=== PATIENT | female | born 1930 | race Caucasian/White ===

== ENCOUNTER 2018-08-20 18:57 | Inpatient (IN) | payer MEDICARE ==
[~2018-08-20] VITALS: Ht 152.4 cm; Wt 71.0 kg
--- NOTE | ~2018-08-20 | MORECARE ---
CASE MANAGEMENT DISCHARGE SUMMARY PATIENT: BOBBY MANDUJANO UNIT: [id number] ADM DATE: 08/22/18 AGE: 87 : [birth year] SEX: F ROOM/BED: D.2121 AUTHOR: ABBY,DOC PHYSICIAN: REFERRING PHYSICIAN: AIMEE DAVALOS MD DATE OF SERVICE: 08/23/18 Discharge Plan Patient Name: BOBBY MANDUJANO Facility: [facility]:[place] : 1930 Planned Disposition: Home Anticipated Discharge Date: 08/25/18 Discharge Date: Expected LOS: 3 Initial Reviewer: [id number] Initial Review Date: 08/23/2018 Generated: 08/23/18 5:57 pm Comments DCP- Discharge Planning Updated by [id number]: Jonathan Spann on 08/23/18 3:[address] Patient Name: BOBBY MANDUJANO Admission Status: ER Accout number: [id number] Admission Date: 08-22-2018 : 1930 Admission Diagnosis: Attending: AIMEE DAVALOS Current LOS: 1 Anticipated DC Date: 08-25-2018 Planned Disposition: Home Primary Insurance: MEDICARE A & B Discharge Planning Comments: CM MET WITH PT IN ROOM TO DISCUSS DISCHARGE PLANNING AND NEEDS. PT REPORTS LIVING AT HOME INDEPENDENTLY AND ALONE, PT'S HOME IS JUST [address] FROM HER DAUGHTERS HOME WHO CHECKS ON PT DAILY. PT HAS CANE AND WALKER WITH WHEELS SEAT AND BRAKES WITH NO MEDICAL EQUIPMENT PROVIDER PREFERENCE. PT HAS NO OUTSIDE SERVICES ASSISTING IN THE HOME. CM DISCUSSED AVAILABILITY OF HOME HEALTH, REHAB SERVICES AND MEDICAL EQUIPMENT. PT DENIES DISCHARGE NEEDS, REPORTS HER SON IN LAW AND DAUGHTER WILL PICK HER UP FOR DISCHARGE HOME. IMPORTANT MESSAGE FROM MEDICARE PROVIDED AND EXPLAINED. PT PLANS TO DISCHARGE HOME ALONE, FAMILY TO PICK HER UP AT DISCHARGE. PT HAS NO ANTICIPATED DISCHARGE NEEDS. CM TO FOLLOW AND ASSIST NEEDED. Log Driver: Jonathan Spann DCPIA - Discharge Planning Initial Assessment Updated by [id number]: Jonathan Spann on 08/23/18 4:45 pm * Is the patient Alert and Oriented? Yes * How many steps to enter\exit or inside your home? * PCP POLICY SERVICE COORDINATOR [facility]IS AT THE [facility] * [facility] [place] * Preadmission Environment Home Alone * ADLs Independent * Equipment Cane Rolling Walker * Other Equipment NO MEDICAL EQUIPMENT PROVIDER PREFERENCE * List name and contact numbers for known caregivers / representatives who currently or will assist patient after discharge: RUBINA MIKO, DTR, NEFTALY CROUCH, SON IN LAW, * Verbal permission to speak to the caregivers and representatives has been obtained from the patient. Yes * Community resources currently utilized None * Please name any agencies selected above. NONE * Additional services required to return to the preadmission environment? No * Can the patient safely return to the preadmission environment? Yes * Has this patient been hospitalized within the prior 30 days at any hospital? No Coverage Notice Reviewer: [id number] Evans Cano Notice Issued Date-Time: 08/21/2018 16:54 Notice Type: Medicare Outpatient Observation Notice Notice Delivered To: Patient Relationship to Patient: Self Cathead Worker Name: Delivery Method: HAND - Hand Delivered Madeline Days: Prior Verbal Notification: Recipient Understood Notice: Yes Recipient Signature: Yes Med Rec Note Co-signed by Attending: Coverage Notice Comment: Reviewer: [id number] - Jonathan Spann Notice Issued Date-Time: 08/23/2018 13:45 Notice Type: IM Discharge Notice Notice Delivered To: Patient Relationship to Patient: Cathead Worker Name: Delivery Method: HAND - Hand Delivered Madeline Days: Prior Verbal Notification: Recipient Understood Notice: Yes Recipient Signature: Yes Med Rec Note Co-signed by Attending: Coverage Notice Comment: Last DP export: 08/23/18 3:46 Patient Name: BOBBY MANDUJANO Page [id number] at 1657 All edits/amendments must be made on the electronic document DICTATION DATE: 08/23/181655 APICULTURIST: RADHA 08/23/181655 RPT#: [id number] DC DATE: STATUS: ADM IN [facility] [address] [place] [address] END OF REPORT
--- NOTE | ~2018-08-20 | MORECARE ---
CASE MANAGEMENT DISCHARGE SUMMARY PATIENT: BOBBY MANDUJANO UNIT: [id number] ADM DATE: 08/22/18 AGE: 87 : [birth year] SEX: F ROOM/BED: D.2121 AUTHOR: ABBY,DOC PHYSICIAN: REFERRING PHYSICIAN: AIMEE DAVALOS MD DATE OF SERVICE: 08/26/18 Discharge Plan Patient Name: BOBBY MANDUJANO Facility: [facility]:[place] : 1930 Planned Disposition: Home Anticipated Discharge Date: 08/26/18 Discharge Date: Expected LOS: 4 Initial Reviewer: [email or web address] Initial Review Date: 08/23/2018 Generated: 08/26/18 2:01 pm Comments DCP- Discharge Planning Updated by [id number]: Jonathan Spann on 08/23/18 3:[address] Patient Name: BOBBY MANDUJANO Admission Status: ER Accout number: [id number] Admission Date: 08-22-2018 : 1930 Admission Diagnosis: Attending: AIMEE DAVALOS Current LOS: 1 Anticipated DC Date: 08-25-2018 Planned Disposition: Home Primary Insurance: MEDICARE A & B Discharge Planning Comments: CM MET WITH PT IN ROOM TO DISCUSS DISCHARGE PLANNING AND NEEDS. PT REPORTS LIVING AT HOME INDEPENDENTLY AND ALONE, PT'S HOME IS JUST [address] FROM HER DAUGHTERS HOME WHO CHECKS ON PT DAILY. PT HAS CANE AND WALKER WITH WHEELS SEAT AND BRAKES WITH NO MEDICAL EQUIPMENT PROVIDER PREFERENCE. PT HAS NO OUTSIDE SERVICES ASSISTING IN THE HOME. CM DISCUSSED AVAILABILITY OF HOME HEALTH, REHAB SERVICES AND MEDICAL EQUIPMENT. PT DENIES DISCHARGE NEEDS, REPORTS HER SON IN LAW AND DAUGHTER WILL PICK HER UP FOR DISCHARGE HOME. IMPORTANT MESSAGE FROM MEDICARE PROVIDED AND EXPLAINED. PT PLANS TO DISCHARGE HOME ALONE, FAMILY TO PICK HER UP AT DISCHARGE. PT HAS NO ANTICIPATED DISCHARGE NEEDS. CM TO FOLLOW AND ASSIST NEEDED. Wire Spring Relay Adjuster: Jonathan Spann DCPIA - Discharge Planning Initial Assessment Updated by [id number]: Jonathan Spann on 08/23/18 4:45 pm * Is the patient Alert and Oriented? Yes * How many steps to enter\exit or inside your home? * PCP ACO COORDINATOR [facility] AT THE [facility] * [facility] [place] * Preadmission Environment Home Alone * ADLs Independent * Equipment Cane Rolling Walker * Other Equipment NO MEDICAL EQUIPMENT PROVIDER PREFERENCE * List name and contact numbers for known caregivers / representatives who currently or will assist patient after discharge: RUBINA CROUCH, DTR, NEFTALY CROUCH, SON IN LAW, * Verbal permission to speak to the caregivers and representatives has been obtained from the patient. Yes * Community resources currently utilized None * Please name any agencies selected above. NONE * Additional services required to return to the preadmission environment? No * Can the patient safely return to the preadmission environment? Yes * Has this patient been hospitalized within the prior 30 days at any hospital? No Coverage Notice Reviewer: [id number] Evans Cano Notice Issued Date-Time: 08/21/2018 16:54 Notice Type: Medicare Outpatient Observation Notice Notice Delivered To: Patient Relationship to Patient: Self Electric Welder Name: Delivery Method: HAND - Hand Delivered Madeline Days: Prior Verbal Notification: Recipient Understood Notice: Yes Recipient Signature: Yes Med Rec Note Co-signed by Attending: Coverage Notice Comment: Reviewer: ALYSSA Spann Notice Issued Date-Time: 08/23/2018 13:45 Notice Type: IM Discharge Notice Notice Delivered To: Patient Relationship to Patient: Electric Welder Name: Delivery Method: HAND - Hand Delivered Madeline Days: Prior Verbal Notification: Recipient Understood Notice: Yes Recipient Signature: Yes Med Rec Note Co-signed by Attending: Coverage Notice Comment: Reviewer: ALYSSA Spann Notice Issued Date-Time: 08/26/2018 12:20 Notice Type: IM Discharge Notice Notice Delivered To: Patient Relationship to Patient: Electric Welder Name: Delivery Method: HAND - Hand Delivered Madeline Days: Prior Verbal Notification: Recipient Understood Notice: Yes Recipient Signature: Yes Med Rec Note Co-signed by Attending: Coverage Notice Comment: Last DP export: 08/23/18 3:57 Patient Name: BOBBY MANDUJANO Page [phone] at 1301 All edits/amendments must be made on the electronic document DICTATION DATE: 08/26/18 1301 BRIMMER BLOCKER: RADHA 08/26/18 1301 RPT#: [id number] DC DATE: STATUS: ADM IN [facility] [address] [place] [address] END OF REPORT
--- NOTE | ~2018-08-20 | MORECARE ---
CASE MANAGEMENT DISCHARGE SUMMARY PATIENT: BOBBY MANDUJANO UNIT: [id number] ADM DATE: 08/22/18 AGE: 87 : [birth year] SEX: F ROOM/BED: D.212 AUTHOR: ABBYDOC PHYSICIAN: REFERRING PHYSICIAN: AIMEE DAVALOS MD DATE OF SERVICE: 08/26/18 Discharge Plan Patient Name: BOBBY MANDUJANO Facility: [facility]:[place] : 1930 Planned Disposition: Home Anticipated Discharge Date: 08/26/18 Discharge Date: Expected LOS: 4 Initial Reviewer: [email or web address] Initial Review Date: 08/23/2018 Generated: 08/26/18 2:16 pm Comments DCP- Discharge Planning Updated by [email or web address]: Jonathan Spann on 08/26/18 12:[address] Patient Name: BOBBY MANDUJANO Admission Status: ER Accout number: [id number] Admission Date: 08-22-2018 : 1930 Admission Diagnosis:SICK SINUS SYNDROME Attending: AIMEE DAVALOS Current LOS: 4 Anticipated DC Date: 08-26-2018 Planned Disposition: Home Primary Insurance: MEDICARE A & B Discharge Planning Comments: CM MET WITH PT IN ROOM TO DISCUSS DISCHARGE NEEDS AND PLANNING. CM DISCUSSED AVAILABILITY OF HOME HEALTH, REHAB SERVICES AND MEDICAL EQUIPMENT. PT DENIES DISCHARGE NEEDS. FAMILY TO TRANSPORT HOME AT DISCHARGE. IMPORTANT MESSAGE FROM MEDICARE PROVIDED AND EXPLAINED. Linux Admin Engineer: Jonathan Spann DCP- Discharge Planning Updated by [email or web address]: Jonathan Spann on 08/23/18 3:[address] Patient Name: BOBBY MANDUJANO Admission Status: ER Accout number: [id number] Admission Date: 08-22-2018 : 1930 Admission Diagnosis: Attending: AIMEE DAVALOS Current LOS: 1 Anticipated DC Date: 08-25-2018 Planned Disposition: Home Primary Insurance: MEDICARE A & B Discharge Planning Comments: CM MET WITH PT IN ROOM TO DISCUSS DISCHARGE PLANNING AND NEEDS. PT REPORTS LIVING AT HOME INDEPENDENTLY AND ALONE, PT'S HOME IS JUST [address] FROM HER DAUGHTERS HOME WHO CHECKS ON PT DAILY. PT HAS CANE AND WALKER WITH WHEELS SEAT AND BRAKES WITH NO MEDICAL EQUIPMENT PROVIDER PREFERENCE. PT HAS NO OUTSIDE SERVICES ASSISTING IN THE HOME. CM DISCUSSED AVAILABILITY OF HOME HEALTH, REHAB SERVICES AND MEDICAL EQUIPMENT. PT DENIES DISCHARGE NEEDS, REPORTS HER SON IN LAW AND DAUGHTER WILL PICK HER UP FOR DISCHARGE HOME. IMPORTANT MESSAGE FROM MEDICARE PROVIDED AND EXPLAINED. PT PLANS TO DISCHARGE HOME ALONE, FAMILY TO PICK HER UP AT DISCHARGE. PT HAS NO ANTICIPATED DISCHARGE NEEDS. CM TO FOLLOW AND ASSIST NEEDED. Linux Admin Engineer: Jonathan Spann DCPIA - Discharge Planning Initial Assessment Updated by [email or web address]: Jonathan Spann on 08/23/18 4:45 pm * Is the patient Alert and Oriented? Yes * How many steps to enter\exit or inside your home? * PCP MATERIALS HANDLER LUIS AT THE [facility] * [facility] [place] * Preadmission Environment Home Alone * ADLs Independent * Equipment Cane Rolling Walker * Other Equipment NO MEDICAL EQUIPMENT PROVIDER PREFERENCE * List name and contact numbers for known caregivers / representatives who currently or will assist patient after discharge: RUBINA MIKO, DTR, NEFTALY CROUCH, SON IN LAW, * Verbal permission to speak to the caregivers and representatives has been obtained from the patient. Yes * Community resources currently utilized None * Please name any agencies selected above. NONE * Additional services required to return to the preadmission environment? No * Can the patient safely return to the preadmission environment? Yes * Has this patient been hospitalized within the prior 30 days at any hospital? No Coverage Notice Reviewer: [id number] Evans Cano Notice Issued Date-Time: 08/21/2018 16:54 Notice Type: Medicare Outpatient Observation Notice Notice Delivered To: Patient Relationship to Patient: Self Electrical Assembler Name: Delivery Method: HAND - Hand Delivered Madeline Days: Prior Verbal Notification: Recipient Understood Notice: Yes Recipient Signature: Yes Med Rec Note Co-signed by Attending: Coverage Notice Comment: Reviewer: [id number] Evans Spann Notice Issued Date-Time: 08/26/2018 12:20 Notice Type: IM Discharge Notice Notice Delivered To: Patient Relationship to Patient: Electrical Assembler Name: Delivery Method: HAND - Hand Delivered Madeline Days: Prior Verbal Notification: Recipient Understood Notice: Yes Recipient Signature: Yes Med Rec Note Co-signed by Attending: Coverage Notice Comment: Reviewer: [id number] Evans Spann Notice Issued Date-Time: 08/23/2018 13:45 Notice Type: IM Discharge Notice Notice Delivered To: Patient Relationship to Patient: Electrical Assembler Name: Delivery Method: HAND - Hand Delivered Madeline Days: Prior Verbal Notification: Recipient Understood Notice: Yes Recipient Signature: Yes Med Rec Note Co-signed by Attending: Coverage Notice Comment: Last DP export: 08/26/18 12:01 Patient Name: BOBBY MANDUJANO Page [id number] at 1316 All edits/amendments must be made on the electronic document DICTATION DATE: 08/26/181314 DETENTION OFFICER: RADHA 08/26/181314 RPT#: [id number] DC DATE: STATUS: ADM IN [facility] [address] [place] [address] END OF REPORT
--- NOTE | ~2018-08-20 | MORECARE ---
CASE MANAGEMENT DISCHARGE SUMMARY PATIENT: BOBBY MANDUJANO UNIT: [id number] ADM DATE: 08/22/18 AGE: 87 : [birth year] SEX: F ROOM/BED: D.2121 AUTHOR: ABBYDOC PHYSICIAN: REFERRING PHYSICIAN: AIMEE DAVALOS MD DATE OF SERVICE: 08/23/18 Discharge Plan Patient Name: BOBBY MANDUJANO Facility: [facility]:[place] : 1930 Planned Disposition: Home Anticipated Discharge Date: 08/25/18 Discharge Date: Expected LOS: 3 Initial Reviewer: [email or web address] Initial Review Date: 08/23/2018 Generated: 08/23/18 5:46 pm DCPIA - Discharge Planning Initial Assessment Updated by [email or web address]: Jonathan Spann on 08/23/18 4:45 pm * Is the patient Alert and Oriented? Yes * How many steps to enter\exit or inside your home? * PCP QUAN SMITH AT THE [facility] * [facility] [place] * Preadmission Environment Home Alone * ADLs Independent * Equipment Cane Rolling Walker * Other Equipment NO MEDICAL EQUIPMENT PROVIDER PREFERENCE * List name and contact numbers for known caregivers / representatives who currently or will assist patient after discharge: RUBINA CROUCH, DTR, NEFTALY CROUCH, SON IN LAW, * Verbal permission to speak to the caregivers and representatives has been obtained from the patient. Yes * Community resources currently utilized None * Please name any agencies selected above. NONE * Additional services required to return to the preadmission environment? No * Can the patient safely return to the preadmission environment? Yes * Has this patient been hospitalized within the prior 30 days at any hospital? No Coverage Notice Reviewer: [id number] Evans Cano Notice Issued Date-Time: 08/21/2018 16:54 Notice Type: Medicare Outpatient Observation Notice Notice Delivered To: Patient Relationship to Patient: Self Surgical Physician Assistant Name: Delivery Method: HAND - Hand Delivered Madeline Days: Prior Verbal Notification: Recipient Understood Notice: Yes Recipient Signature: Yes Med Rec Note Co-signed by Attending: Coverage Notice Comment: Reviewer: [id number] Evans Spann Notice Issued Date-Time: 08/23/2018 13:45 Notice Type: IM Discharge Notice Notice Delivered To: Patient Relationship to Patient: Surgical Physician Assistant Name: Delivery Method: HAND - Hand Delivered Madeline Days: Prior Verbal Notification: Recipient Understood Notice: Yes Recipient Signature: Yes Med Rec Note Co-signed by Attending: Coverage Notice Comment: Patient Name: BOBBY MANDUJANO Page 54582 at 1646 All edits/amendments must be made on the electronic document DICTATION DATE: 08/23/181644 COSTUME DESIGN TEACHER: RADHA 08/23/181644 RPT#: [id number] DC DATE: STATUS: ADM IN [facility] [address] [place] [address] END OF REPORT
--- NOTE | ~2018-08-20 | OP ---
PATIENT NAME: BOBBY MANDUJANO MEDICAL RECORD: [id number] :[birth year] LOCATION:D. D.2121 ADMISSION DATE:08/22/18 SURGEON: NAT COMER MD DATE OF OPERATION: 08/24/2018 SURGEON: Nat Comer MD ANESTHESIA: General, Santino Richard MD OPERATION PERFORMED: Insertion of dual chamber pacing system. PREOPERATIVE DIAGNOSIS: Sick sinus syndrome. POSTOPERATIVE DIAGNOSIS: Sick sinus syndrome. INDICATION FOR OPERATION: Bradycardia. FINDINGS AT OPERATION: The pulse generator is a Medtronic A2DR01, serial #[id number]. ATRIAL LEAD: Medtronic model #4574-45, serial #[id number]. VENTRICULAR LEAD: Medtronic model #4074-52, serial #[id number]. LEAD ANALYSIS: Atrial lead; threshold 0.3 volts, current lead threshold 0.3 milliamps, resistance 702 ohms, P wave 2.8. Ventricular lead; threshold 0.2 volts, current lead threshold 0.1 milliamps, resistance 1658, R wave 12.4. ESTIMATED BLOOD LOSS: Less than 5 cc. DESCRIPTION OF PROCEDURE: After informed consent, adequate preoperative medication, and evaluation, the patient was brought to the operating room and placed on the table in supine position. After induction of general endotracheal anesthesia and application of appropriate monitoring devices, the left chest and neck were prepped and draped in sterile field utilizing Betadine scrub, alcohol, and Betadine solution. Betadine-impregnated drape was also used. Lidocaine 1% was infiltrated in the left subclavicular space. Incision was made. Dissection was carried down to the fascia. Pacemaker pocket was formed. Subclavian vein was cannulated with introducers. Leads were placed in the heart. Above electrophysiologic study was done and felt to be in good position. The leads were secured. The leads were then connected to pulse generator and pacemaker placed in the pocket. Pacemaker fired, captured, and sensed appropriately. Pocket was irrigated. Instrument count and sponge count were correct times 2. Pocket was closed in layers utilizing 3-0 Vicryl on the deep subcutaneous tissue and 5-0 subcuticular Monocryl on the skin. Sterile dressings were applied. The patient tolerated the procedure well and was transferred to recovery room in satisfactory condition. TRANSINT:[id number] Voice Confirmation ID: [id number] DOCUMENT ID: [id number] OPERATIVE REPORT [id number] BOBBY MANDUJANO EDWARD MD at 1001 CC: [id number] DICTATION DATE: 08/24/18 1552 SUSTAINABLE DESIGN COORDINATOR: 08/24/18 1728 ADM IN [facility] [address] [place] [address]
[2018-08-20] MEDS ORDERED: TOPROL XL25 MG PO (19:09)
[2018-08-20] MEDS ORDERED: SYNTHROID75 MCG PO (19:09)
[2018-08-20] MEDS ORDERED: BETAPACE 80 MG80 MG PO (19:09)
[2018-08-20] MEDS ORDERED: XARELTO15 MG PO (19:10)
[2018-08-20 21:06] VITALS: BP 112/64
[2018-08-21] VITALS (7 sets, daily range): BP systolic 112–179; BP diastolic 51–79; BMI 32.1
[2018-08-21 05:31] LABS: BASOPHILS 0.7 % (0-2); EOSINOPHILS 0.7 % (0-7); HEMATOCRIT 38.7 % (36.0-48.0); HEMOGLOBIN 12.2 g/dL (12-16); IMMATURE GRANULOCYTES 0.2 % (0-5); LYMPHOCYTES 32.9 % (15-50); MCHC 31.5 g/dL (31.0-37.0); MCV 88.8 fL (80.0-100.0); MEAN PLATELET VOLUME 10.8 fL (7.4-10.4); MONOCYTES 11.6 % (2-11); NEUTROPHILS 53.9 % (40-80); PLATELET COUNT 221 10x3/uL (130-400); RBC 4.36 10x6/uL (4.00-5.40); RDW 19.1 % (11.5-14.5); WBC 5.5 10x3/uL (4.8-10.8)
[2018-08-21 05:58] LABS: CALC OSMOLALITY 274 mosm/kg (275-300); CALCIUM 8.7 mg/dL (8.5-10.1); CARBON DIOXIDE 25.2 mmol/L (21.0-32.0); CHLORIDE - SERUM 103 mmol/L (98-107); CKMB 1.1 U/L (0.0-3.6); CREATINE KINASE 46 UL (21-215); CREATININE - SERUM 1.1 mg/dL (0.6-1.3); GLUCOSE 92 mg/dL (74-106); MAGNESIUM - SERUM 1.9 mg/dL (1.8-2.4); POTASSIUM - SERUM 4.4 mmol/L (3.5-5.1); SODIUM 136 mmol/L (136-145); TROPONIN-I < 0.017 ng/mL (0.000-0.060); UREA NITROGEN 20 mg/dL (7-18); eGFR NON AFRICAN AMERICAN 50 mL/min (90-120)
[2018-08-22 04:00] VITALS: BP 145/74
[2018-08-22 06:52] LABS: BASOPHILS 0.6 % (0-2); EOSINOPHILS 1.6 % (0-7); HEMATOCRIT 38.8 % (36.0-48.0); HEMOGLOBIN 12.3 g/dL (12-16); IMMATURE GRANULOCYTES 0.2 % (0-5); LYMPHOCYTES 24.9 % (15-50); MCHC 31.7 g/dL (31.0-37.0); MCV 88.4 fL (80.0-100.0); MONOCYTES 11.4 % (2-11); NEUTROPHILS 61.3 % (40-80); PLATELET COUNT 220 10x3/uL (130-400); RBC 4.39 10x6/uL (4.00-5.40); RDW 19.1 % (11.5-14.5)
[2018-08-22 07:12] LABS: ALBUMIN 2.9 g/dL (3.4-5.0); ANION GAP 13.7 mmol/L (8-16); BILIRUBIN - TOTAL 0.57 mg/dL (0.2-1.3); CALCIUM 8.3 mg/dL (8.5-10.1); CARBON DIOXIDE 25.1 mmol/L (21.0-32.0); MAGNESIUM - SERUM 1.7 mg/dL (1.8-2.4); POTASSIUM - SERUM 3.8 mmol/L (3.5-5.1); PROTEIN - SERUM 6.8 g/dL (6.4-8.2)
[2018-08-22 10:48] VITALS: BP 164/96
[2018-08-22 13:38] VITALS: BP 175/60
[2018-08-22 15:53] VITALS: BP 156/61
[2018-08-22 19:45] VITALS: BP 162/57
[2018-08-22 23:35] VITALS: BP 138/54
[2018-08-23 03:30] VITALS: BP 185/59
[2018-08-23 04:44] LABS: BASOPHILS 0.6 % (0-2); EOSINOPHILS 2.4 % (0-7); HEMATOCRIT 38.2 % (36.0-48.0); HEMOGLOBIN 12.3 g/dL (12-16); IMMATURE GRANULOCYTES 0.2 % (0-5); LYMPHOCYTES 25.1 % (15-50); MCH 28.4 pg (26.0-34.0); MCHC 32.2 g/dL (31.0-37.0); MCV 88.2 fL (80.0-100.0); MEAN PLATELET VOLUME 11.1 fL (7.4-10.4); MONOCYTES 13.7 % (2-11); PLATELET COUNT 219 10x3/uL (130-400); RBC 4.33 10x6/uL (4.00-5.40); WBC 5.3 10x3/uL (4.8-10.8)
[2018-08-23 05:12] LABS: BILIRUBIN - TOTAL 0.54 mg/dL (0.2-1.3); CALCIUM 8.8 mg/dL (8.5-10.1); MAGNESIUM - SERUM 1.6 mg/dL (1.8-2.4); POTASSIUM - SERUM 3.7 mmol/L (3.5-5.1); PROTEIN - SERUM 6.7 g/dL (6.4-8.2)
[2018-08-23 05:21] LABS: ANION GAP 10.2 mmol/L (8-16); CARBON DIOXIDE 30.5 mmol/L (21.0-32.0)
[2018-08-23 08:47] VITALS: BP 170/61
[2018-08-23] MEDS ORDERED: BETAPACE 80 MG80 MG PO (10:37)
[2018-08-23] MEDS ORDERED: PROTONIX40 MG PO (10:37)
[2018-08-23] MEDS ORDERED: MAG-OX 400 MG400 MG PO (10:40)
[2018-08-23 11:42] VITALS: BP 158/78
[2018-08-23 15:07] VITALS: BP 136/71
[2018-08-23 17:30] VITALS: Ht 152.4 cm; Wt 71.0 kg
[2018-08-23 21:41] VITALS: BP 148/97
[2018-08-24 01:16] VITALS: BP 133/59
[2018-08-24 05:50] VITALS: BP 139/57
[2018-08-24 06:28] LABS: APTT 32.6 SECONDS (22.8-39.4); INR 1.17 (0.85-1.17); PROTIME 14.6 SECONDS (11.6-15.0)
[2018-08-24 06:41] LABS: ALBUMIN 2.7 g/dL (3.4-5.0); BILIRUBIN - TOTAL 0.46 mg/dL (0.2-1.3); CALCIUM 8.6 mg/dL (8.5-10.1); CARBON DIOXIDE 28.7 mmol/L (21.0-32.0); MAGNESIUM - SERUM 1.7 mg/dL (1.8-2.4); POTASSIUM - SERUM 3.7 mmol/L (3.5-5.1); PROTEIN - SERUM 6.5 g/dL (6.4-8.2)
[2018-08-24 06:46] LABS: EOSINOPHILS 2.1 % (0-7); HEMATOCRIT 38.1 % (36.0-48.0); HEMOGLOBIN 12.4 g/dL (12-16); IMMATURE GRANULOCYTES 0.2 % (0-5); LYMPHOCYTES 28.3 % (15-50); MCH 28.7 pg (26.0-34.0); MCHC 32.5 g/dL (31.0-37.0); MCV 88.2 fL (80.0-100.0); MEAN PLATELET VOLUME 11.5 fL (7.4-10.4); MONOCYTES 11.5 % (2-11); NEUTROPHILS 56.9 % (40-80); PLATELET COUNT 228 10x3/uL (130-400); RBC 4.32 10x6/uL (4.00-5.40); RDW 18.9 % (11.5-14.5); WBC 5.7 10x3/uL (4.8-10.8)
[2018-08-24 08:01] VITALS: BP 148/61
[2018-08-24 11:23] VITALS: BP 185/64
[2018-08-24 18:22] VITALS: BP 158/95
[2018-08-24 21:07] VITALS: BP 150/90
[2018-08-25 00:42] VITALS: BP 138/72
[2018-08-25 04:51] LABS: BASOPHILS 0.2 % (0-2); EOSINOPHILS 0 % (0-7); HEMATOCRIT 44.7 % (36.0-48.0); HEMOGLOBIN 14.7 g/dL (12-16); IMMATURE GRANULOCYTES 0.2 % (0-5); LYMPHOCYTES 8.4 % (15-50); MCH 28.8 pg (26.0-34.0); MCHC 32.9 g/dL (31.0-37.0); MCV 87.5 fL (80.0-100.0); MEAN PLATELET VOLUME 10.7 fL (7.4-10.4); MONOCYTES 6.9 % (2-11); NEUTROPHILS 84.3 % (40-80); PLATELET COUNT 259 10x3/uL (130-400); RBC 5.11 10x6/uL (4.00-5.40); RDW 18.7 % (11.5-14.5)
[2018-08-25 04:56] LABS: WBC 10.5 10x3/uL (4.8-10.8)
[2018-08-25 05:10] LABS: ANION GAP 12.5 mmol/L (8-16); BILIRUBIN - TOTAL 0.48 mg/dL (0.2-1.3); CALCIUM 8.8 mg/dL (8.5-10.1); CARBON DIOXIDE 27.9 mmol/L (21.0-32.0); MAGNESIUM - SERUM 1.8 mg/dL (1.8-2.4); POTASSIUM - SERUM 3.4 mmol/L (3.5-5.1); PROTEIN - SERUM 7.3 g/dL (6.4-8.2)
[2018-08-25 05:17] VITALS: BP 115/62
[2018-08-25 07:56] VITALS: BP 116/51
[2018-08-25 12:05] VITALS: BP 136/61
[2018-08-25 15:04] VITALS: BP 122/54
[2018-08-25 21:03] VITALS: BP 135/57
[2018-08-26 01:12] VITALS: BP 106/54
[2018-08-26 04:38] VITALS: BP 137/60
[2018-08-26 05:27] LABS: BASOPHILS 0.5 % (0-2); EOSINOPHILS 1.1 % (0-7); HEMATOCRIT 41.6 % (36.0-48.0); HEMOGLOBIN 13.9 g/dL (12-16); IMMATURE GRANULOCYTES 0.3 % (0-5); LYMPHOCYTES 19.3 % (15-50); MCH 29.2 pg (26.0-34.0); MCHC 33.4 g/dL (31.0-37.0); MCV 87.4 fL (80.0-100.0); MEAN PLATELET VOLUME 10.9 fL (7.4-10.4); MONOCYTES 13.6 % (2-11); NEUTROPHILS 65.2 % (40-80); PLATELET COUNT 213 10x3/uL (130-400); RBC 4.76 10x6/uL (4.00-5.40); WBC 6.2 10x3/uL (4.8-10.8)
[2018-08-26 05:31] LABS: ALBUMIN 2.6 g/dL (3.4-5.0); BILIRUBIN - TOTAL 0.57 mg/dL (0.2-1.3); CALCIUM 8.4 mg/dL (8.5-10.1); CARBON DIOXIDE 27.2 mmol/L (21.0-32.0); CREATININE - SERUM 1.2 mg/dL (0.6-1.3); MAGNESIUM - SERUM 1.9 mg/dL (1.8-2.4); POTASSIUM - SERUM 3.2 mmol/L (3.5-5.1); PROTEIN - SERUM 6.6 g/dL (6.4-8.2)
[2018-08-26 08:03] VITALS: BP 156/66
[2018-08-26 11:19] VITALS: BP 142/58
== END 2018-08-26 15:29 | disposition home or self-care (01) | DRG 243 ==
LOC: D.ER 18:57 → OBSVTIME 19:41 → D.EDHOLD 19:41 → D.M2 20:07
PROVIDERS: Emergency Medicine; Family Medicine; Internal Medicine Cardiovascular Disease
PROC: 02H63JZ Insertion of Pacemaker Lead into Right Atrium, Percutaneous Approach (ICD-10-PCS; 2018-08-24)
PROC: 02HK3JZ Insertion of Pacemaker Lead into Right Ventricle, Percutaneous Approach (ICD-10-PCS; 2018-08-24)
PROC: 0JH606Z Insertion of Pacemaker, Dual Chamber into Chest Subcutaneous Tissue and Fascia, Open Approach (ICD-10-PCS; principal; 2018-08-24 09:00)
DX: I49.5 Sick sinus syndrome (principal); N17.9 Acute kidney failure, unspecified; E03.9 Hypothyroidism, unspecified; E83.42 Hypomagnesemia; I48.91 Unspecified atrial fibrillation